=== PATIENT | female | born 1950 | race Caucasian/White ===

== ENCOUNTER → 2020-02-04 | Outpatient (CLI) | payer MEDICARE ==
[~2020-02-04] MED LIST: ASPI-496 PO; CARV12.52 PO; FURO20TA3 PO; LISI-167 PO; SIMV40TA20 PO; SPIR25TA5 PO
[2020-02-04 15:09] LABS: ALANINE AMINOTRANSFERASE 37 U/L (12-78); ALBUMIN 3.5 g/dL (3.4-5.0); ANION GAP 7 mmol/L (5-15); CALCIUM 8.8 mg/dL (8.5-10.1); CHLORIDE 110 mmol/L (98-107)
[2020-02-04 15:11] LABS: ALKALINE PHOSPHATASE 89 U/L (45-117); BILIRUBIN,TOTAL 0.5 mg/dL (0.2-1.0); TOTAL PROTEIN 7.7 g/dL (6.4-8.2)
== END | disposition home or self-care (01) ==
LOC: STAR 13:10
PROVIDERS: ATTEND Internal Medicine Gastroenterology
DX: Z01.818 Encounter for other preprocedural examination (principal); I45.10 Unspecified right bundle-branch block; I25.89 Other forms of chronic ischemic heart disease; Z88.0 Allergy status to penicillin
CPT/HCPCS: 36415; 80053; 93005

== ENCOUNTER 2020-02-13 12:06 | Day surgery (SDC) | payer MEDICARE ==
[~2020-02-13] VITALS: Ht 167.6 cm; Wt 136.4 kg
[2020-02-13] MEDS ORDERED: FENTANYL PF 100 MCG/2ML ONE (12:26)
[2020-02-13] MEDS ORDERED: DEXAMETHASONE 4 MG/ML, 1ML ONE (12:26)
[2020-02-13] MEDS ORDERED: GLYCOPYRROLATE 0.2MG/1ML, 5ML ONE (12:26)
[2020-02-13] MEDS ORDERED: MIDAZOLAM 1 MG/ML, 2ML ONE (12:26)
[2020-02-13] MEDS ORDERED: PROPOFOL 10 MG/ML, 20ML ONE (12:26)
[2020-02-13] MEDS ORDERED: LIDOCAINE-MPF 2% ,5ML ONE (12:26)
[2020-02-13] MEDS ORDERED: LACTATED RINGERS 1,000 ML IV SCH (12:55)
[2020-02-13] MEDS ORDERED: CHLORHEXIDINE 15 ML UDC MM STA (12:56)
[2020-02-13] MEDS ORDERED: ONDANSETRON 2MG/ML, 2ML IVPush PRN (15:30)
[2020-02-13] MEDS ORDERED: ALBUTEROL/IPRATROPIUM 2.5MG/0.5MG, 3 ML NPPB PRN (15:30)
[2020-02-13] MEDS ORDERED: LORazepam 2 MG/ML, 1ML IVPush PRN (15:30)
[2020-02-13] MEDS ORDERED: HALOPERIDOL 5 MG/ML IV PRN (15:30)
[2020-02-13] MEDS ORDERED: ACETAMINOPHEN 325 MG TABLET PO PRN (15:30)
[2020-02-13] MEDS ORDERED: EPHEDRINE 50 MG/ML, 1ML IVPush PRN (15:30)
[2020-02-13] MEDS ORDERED: MIDAZOLAM 1 MG/ML, 2ML IV PRN (15:30)
[2020-02-13] MEDS ORDERED: LABETALOL 5MG/ML, 20ML IV PRN (15:30)
[2020-02-13] MEDS ORDERED: EPHEDRINE 50 MG/ML, 1ML IM PRN (15:30)
[2020-02-13] MEDS ORDERED: DIPHENHYDRAMINE 50 MG/ML, 1ML IVPush PRN (15:30)
[2020-02-13] MEDS ORDERED: FENTANYL PF 100 MCG/2ML IV PRN (15:30)
[2020-02-13] MEDS ORDERED: METOCLOPRAMIDE 5 MG/ML, 2ML IVPush PRN (15:30)
[2020-02-13] MEDS ORDERED: DIAZEPAM 5 MG/ML, 2ML IVPush PRN (15:30)
== END 2020-02-13 16:35 | disposition home or self-care (01) ==
LOC: OR 12:06
PROVIDERS: ATTEND Internal Medicine Gastroenterology
DX: R19.5 Other fecal abnormalities (principal); Z11.59 Encounter for screening for other viral diseases; K57.30 Diverticulosis of large intestine without perforation or abscess without bleeding; K64.4 Residual hemorrhoidal skin tags; K63.89 Other specified diseases of intestine; I10 Essential (primary) hypertension; E78.5 Hyperlipidemia, unspecified; M79.7 Fibromyalgia; J45.909 Unspecified asthma, uncomplicated; E66.01 Morbid (severe) obesity due to excess calories; Z68.31 Body mass index [BMI] 31.0-31.9, adult; Z79.899 Other long term (current) drug therapy; Z88.0 Allergy status to penicillin; Z88.2 Allergy status to sulfonamides; Z88.5 Allergy status to narcotic agent; Z88.8 Allergy status to other drugs, medicaments and biological substances; Z82.49 Family history of ischemic heart disease and other diseases of the circulatory system
CPT/HCPCS: 36415; 45378; 82962; 87635; J1100; J2250; J2704; J3010